=== PATIENT | male | born 1960 | race Two or more races ===

== ENCOUNTER → 2020-12-17 | Outpatient (CLI) | payer OTHER | END | disposition home or self-care (01) | LOC: LAB 13:12 | PROVIDERS: ATTEND Nurse Practitioner Family | DX: Z20.822 Contact with and (suspected) exposure to COVID-19 (principal) | CPT/HCPCS: C9803; U0003 ==

== ENCOUNTER 2025-01-07 15:38 | Inpatient (IN) | payer OTHER ==
[~2025-01-07] VITALS: Ht 177.8 cm; Wt 140.7 kg
[2025-01-07] MEDS: SODIUM CHLORIDE 0.9% 1,000 ML IV ONE ×2 (16:15→20:17)
--- NOTE | 2025-01-07 16:16 | ED.PDOC ---
General HPI Comments This is a 64-year-old male with past medical history of hypertension, o bstructive sleep apnea (on CPAP), came to the hospital due to dysuria. He also reports of frequency, dribbling, hesitancy, urgency, and urinary incontinence. Per patient, he had right inguinal hernia repair 2 weeks back, after surgery he was feeling good but recently has developed right side abdominal pain. He denies fever, nausea, vomiting, chest pain, shortness of breaths or any bowel habit changes. Home meds: Losartan and Zepbound Surgical history: Cholecystectomy, gastric bypass surgery, and right inguinal hernia Chief Complaint: Urinary Time Seen by MD: 15:59 Allergies: Coded Allergies: NO KNOWN ALLERGIES (Unverified , 01/07/25) Information Source: Patient Mode of Arrival: Ambulatory Physical Exam General Appearance: No Apparent Distress, Normal HEENT: Normal ENT Inspection, Pharynx Normal, TMs Normal Neck: Full Range of Motion, Non-Tender, Normal, Normal Inspection Respiratory: Chest Non-Tender, Lungs Clear, No Accessory Muscle Use, No Respiratory Distress, Normal Breath Sounds Cardiovascular: No Edema, No JVD, No Murmur, No Gallop, Normal Peripheral Pulses, Regular Rate/Rhythm Breast Exam: Deferred Gastrointestinal: No Organomegaly, Non Tender, No Pulsatile Mass, Normal Bowel Sounds, Soft Genitalia: Deferred Pelvic: Deferred Rectal: Deferred Extremities: No calf tenderness, Normal capillary refill, Normal inspection, Normal range of motion, Non-tender, No pedal edema Musculoskeletal : Apperance: Normal Neurologic: Alert, farm consultant II-XII nml as Tested, No Motor Deficits, Normal Affect, Normal Mood, No Sensory Deficits Cerebellar Function: Normal Reflexes: Normal Skin: Dry, Normal Color, Warm Lymphatic: No Adenopathy Was a procedure done? Was a procedure done?: No Differential Diagnosis Kidney stone (Female): Pyelonephritis Urinary Problem (Male): Bladder Outlet, Bladder Obstruction, Epididymitis, Prostatitis, Plelonephritis Urinary Problem (Female): Appendicitis X-Ray, Labs, Meds, VS Vital Signs Date Time Temp Pulse Resp B/P (MAP) Pulse Ox O2 Delivery O2 Flow Rate FiO2 01/07/25 16:58 98 01/07/25 16:51 97.9 98 17 165/54 (91) 96 97.9 01/07/25 15:43 98.9 100 18 153/75 98 98.9 Lab Test 01/07/25 16:44 01/07/25 16:33 Range/Units Urine Color Brown H Yellow Urine Clarity Ex.turbid Clear Urine pH 6.0 5.0-9.0 Urine Specific [place] 1.027 1.001-1.035 Urine Protein 2+ H Negative Urine Ketones 2+ H Negative Urine Blood 3+ H Negative /uL Urine Nitrite Negative Negative Urine Bilirubin Negative Negative Urine Urobilinogen Normal Negative mg/dL Urine Leukocyte Esterase 3+ Negative /uL Urine RBC 3876 0 - 3 /hpf Urine WBC Clumps Present None Seen /hpf Urine Microscopic WBC 1486 H 0-3 /HPF Urine Squamous Epithelial Cells Few <5 /hpf Urine Bacteria None seen None Seen /hpf Urine Hyaline Casts Mod 0 - 2 /lpf Urine Mucus Few None Seen Urine Yeast (Budding) Moderate None Seen /hpf Urine Glucose Normal Normal mg/dL White Blood Count 14.9 H 4.4-10.8 10^3/uL Red Blood Count 4.55 4.5-5.90 10^6/uL Hemoglobin 14.3 13.5-17.5 g/dL Hematocrit 42.0 41.0-53.0 % Mean Corpuscular Volume 92.3 80.0-100.0 fL Mean Corpuscular Hemoglobin 31.5 28.0-32.0 pg Mean Corpuscular Hemoglobin Concent 34.1 32.0-36.0 g/dL Red Cell Distribution Width 13.8 11.8-14.3 % Platelet Count 242 140-450 10^3/uL Mean Platelet Volume 9.2 6.9-10.8 fL Neutrophils (%) (Auto) 84.3 H 37.0-80.0 % Lymphocytes (%) (Auto) 10.1 10.0-50.0 % Monocytes (%) (Auto) 5.3 0.0-12.0 % Eosinophils (%) (Auto) 0.1 0.0-7.0 % Basophils (%) (Auto) 0.2 0.0-2.0 % Neutrophils # (Auto) 12.5 H 1.6-8.6 10 ^3/uL Lymphocytes # (Auto) 1.5 0.4-5.4 10 ^3/uL Monocytes # (Auto) 0.8 0-1.3 10 ^3/uL Eosinophils # (Auto) 0 0-0.8 10 ^3/uL Basophils # (Auto) 0 0-0.2 10 ^3/uL Nucleated Red Blood Cells 0.0 % Sodium Level 137 136-145 mmol/L Potassium Level 3.7 3.5-5.1 mmol/L Chloride Level 103 98-107 mmol/L Carbon Dioxide Level 24 20-31 mmol/L Anion Gap 10 5-15 Blood Urea Nitrogen 9 9-23 mg/dL Creatinine 0.78 0.700-1.30 mg/dL Glomerular Filtration Rate Calc 101 >90 mL/min BUN/Creatinine Ratio 11.5 10.0-20.0 Serum Glucose 117 H 74-106 mg/dL Calcium Level 8.8 8.7-10.4 mg/dL Magnesium Level 1.8 1.6-2.6 mg/dL Total Bilirubin 0.9 0.2-1.0 mg/dL Aspartate Amino Transferase (AST) 18 13-40 U/L Alanine Aminotransferase (ALT) 17 7-40 U/L Alkaline Phosphatase 128 H 46-116 U/L Total Protein 7.7 5.7-8.2 g/dL Albumin 4.4 3.2-4.8 g/dL Current Medications Medications (Trade) Dose Ordered Sig/Brock Route Start Time Stop Time Status Last Admin Acetaminophen (Tylenol Tablet) 650 mg ONCE ONCE PO 01/07/25 16:15 01/07/25 16:41 DC 01/07/25 17:05 Time of 1ST Reevaluation: 19:34 Reevaluation 1ST: Unchanged Patient Education/Counseling: Diagnosis, Treatment, Prognosis, Need For Follow Up Family Education/Counseling: No Family Present Comments Patient came to the hospital due to dysuria frequency and hesitancy. Patient was vitally stable. CBC and CMP checked, showed raised WBC Urinalysis performed, showed UTI picture. CT scan, showed 0.8 cm septated complex fluid collection in the right lower quadrant of the abdomen. IV Rocephin given. Blood culture, urine culture ordered Patient will be admitted in hospital for further workup and management. SEPSIS Sepsis Screen Date sepsis recognized/suspect: Jan 07, 2025 Time Sepsis recognized/suspect: 1543 Recent Procedure: No On Antibiotic Therapy: No Respiratory Rate >20: No Heart Rate >90: Yes Temp<36 C (96.8 F) or >38.3 C: No SBP <90 or MAP <65 mmHG: No New Acute Mental Status Change: No Is the patient on CPAP, BIPAP,: No Physician Orders Bladder (01/07/25 16:01) Vital Signs Date Time Temp Pulse Resp B/P (MAP) Pulse Ox O2 Delivery O2 Flow Rate FiO2 01/07/25 16:58 98 01/07/25 16:51 97.9 98 17 165/54 (91) 96 97.9 01/07/25 15:43 98.9 100 18 153/75 98 98.9 Laboratory Tests Test 01/07/25 16:33 White Blood Count 14.9 10^3/uL (4.4-10.8) H Medications Medications Dose Ordered Sig/Brock Route Start Time Stop Time Status Last Admin Dose Admin Acetaminophen 650 mg ONCE ONCE PO 01/07/25 16:15 01/07/25 16:41 DC 01/07/25 17:05 Departure 1 Departure Time of Disposition: 19:36 Impression: Primary Impression: Pyelonephritis Additional Impression: Sepsis Disposition: ADMITTED INPATIENT Admit to: Med Surg Condition: Guarded Critical Care Note Critical Care Time?: No Stability Stability form required: No Heart Score Heart Score: Heart Score Response (Comments) Value History N/A 0 EKG N/A 0 Age N/A 0 Risk Factors N/A 0 Troponin N/A 0 Total 0 CHANTE HART Jan 07, 2025 16:16
[2025-01-07 16:58] VITALS: PULSE 98
[2025-01-07 17:00] LABS: Hematocrit 42.0 % (41.0-53.0); Hemoglobin 14.3 g/dL (13.5-17.5); Mean Corpuscular Hemoglobin 31.5 pg (28.0-32.0); Mean Corpuscular Volume 92.3 fL (80.0-100.0); Nucleated Red Blood Cells % 0.0 %
[2025-01-07 17:03] LABS: Urine Budding Yeast MODERATE /hpf (None Seen); Urine Protein, UAD 2+ (Negative); Urine WBC Clumps PRESENT /hpf (None Seen)
[2025-01-07] MEDS: ACETAMINOPHEN 325 MG TAB PO ONE (17:05)
[2025-01-07 17:21] LABS: Alanine Aminotransferase 17 U/L (7-40); Albumin 4.4 g/dL (3.2-4.8); Anion Gap 10 (5-15); BUN/Creatinine Ratio 11.5 (10.0-20.0); Bilirubin, Total 0.9 mg/dL (0.2-1.0); Blood Urea Nitrogen 9 mg/dL (9-23); Calcium 8.8 mg/dL (8.7-10.4); Carbon Dioxide 24 mmol/L (20-31); Chloride 103 mmol/L (98-107); Magnesium 1.8 mg/dL (1.6-2.6); Potassium 3.7 mmol/L (3.5-5.1); Sodium 137 mmol/L (136-145); Total Protein 7.7 g/dL (5.7-8.2)
[2025-01-07 17:23] LABS: Alkaline Phosphatase 128 U/L (46-116); Glucose 117 mg/dL (74-106)
--- NOTE | 2025-01-07 17:56 | DVH ---
Exam: US BLADDER History: status post hernai repair, urinany symptoms Comparison: None Date: 01/07/2025 04:56 PM Technique: Grayscale and color Doppler ultrasound of the pelvis was obtained. Pre-and postvoid images of the bladder were obtained. Findings: Prevoid bladder is not well distended and is suboptimally evaluated. The volume of the time of the e xamination is estimated at 29 cc. The bladder wall measures 17 mm in thickness although this is likel y due to nondistention. Postvoid, the bladder volume is approximately 18 cc. The left ureteral jet is visualized. The right ureteral jet is not visualized during this study. There is a septated complex fluid collection in the right lower quadrant measuring approximately 10.8 x 4.0 x 8.9 cm. IMPRESSION: The bladder is not distended at the time of evaluation and evaluation is therefore suboptimal. The left ureteral jet is seen. The right ureteral jet is not seen during this study. There is a 10.8 cm septated complex fluid collection in the right lower quadrant of the abdomen. Lyn elates clinically with physical exam. Consider CT with contrast if clinically indicated.
[2025-01-07] MEDS ORDERED: ONDANSETRON HCL 4 MG/2 ML VIAL IV PRN (20:30)
[2025-01-07] MEDS ORDERED: ACETAMINOPHEN 325 MG TAB PO PRN (20:30)
[2025-01-07] MEDS ORDERED: HYDROcodone-ACET 5/325MG TAB PO PRN (20:30)
[2025-01-07] MEDS ORDERED: TEMAZEPAM 15 MG CAP PO PRN (20:30)
--- NOTE | 2025-01-07 22:31 | DVHHP2 ---
History of Present Illness Reason for Visit: Urinary symptoms History of Present Illness 64-year-old male presents for evaluation of urinary symptoms. Patient reports a two day history of dysuria with urgency and hesitancy. Denies fever or chills. He also reports mild right abdominal tenderness. No nausea or vomiting. No o ther acute complaints reported. Past Medical History Hypertension Past Surgical History Gastric bypass, right inguinal hernia, cholecystectomy Family History Noncontributory Smoke: No ALCOHOL: none Drugs: None Lives: with Family Review of Systems Review of Systems Review of systems are currently negative otherwise addressed in HPI. Allergies: Coded Allergies: NO KNOWN ALLERGIES (Unverified , 01/07/25) Medications Current Medications Medications Dose Ordered Sig/Brock Route Start Time Stop Time Status Last Admin Dose Admin Ceftriaxone Sodium 50 ml @ 100 mls/hr Q24H IV 01/08/25 20:00 Acetaminophen/ Hydrocodone Bitart 1 tab Q4HP PRN PO 01/07/25 20:30 Temazepam 15 mg QHSP PRN PO 01/07/25 20:30 Ondansetron HCl 4 mg Q4HP PRN IV 01/07/25 20:30 Acetaminophen 650 mg Q6HP PRN PO 01/07/25 20:30 Exam Vital Signs Vital Signs Date Time Temp Pulse Resp B/P (MAP) Pulse Ox O2 Delivery O2 Flow Rate FiO2 01/07/25 16:58 98 01/07/25 16:51 97.9 17 165/54 (91) 96 97.9 Exam Gen: 64-year-old male in mild distress Skin: Warm, dry, normal color and texture, no rash. HEENT: Normocephalic atraumatic, mucous membranes moist and pink. Neck: Cervical and supraclavicular nodes normal without enlargement, trachea is midline, thyroid gland is normal without masses. Pulmonary: Clear to auscultation and percussion bilaterally. Cardiac: Regular rate and rhythm. No murmur Abdomen: Soft, nontender, nondistended, bowel sounds present all 4 quadrants, no guarding, no rigidity, no organomegaly. Extremities: No cyanosis, clubbing, no edema Neuro: Cranial nerves II through XII grossly intact, normal affect and speech, no focal motor deficits. Labs/Xrays ORDERING PHYSICIAN: CHANTE HART RESDICHRIS PROCEDURE(s): BLDR - BLADDER REASON: status post hernai repair, urinany symptoms ORDER NUMBER(s): [id number], ACCESSION NUMBER(s): [id number] Exam: US BLADDER History: status post hernai repair, urinany symptoms Comparison: None Date: 01/07/2025 04:56 PM Technique: Grayscale and color Doppler ultrasound of the pelvis was obtained. Pre-and postvoid images of the bladder were obtained. Findings: Prevoid bladder is not well distended and is suboptimally evaluated. The volume of the time of the examination is estimated at 29 cc. The bladder wall measures 17 mm in thickness although this is likely due to nondistention. Postvoid, the bladder volume is approximately 18 cc. The left ureteral jet is visualized. The right ureteral jet is not visualized during this study. There is a septated complex fluid collection in the right lower quadrant measuring approximately 10.8 x 4.0 x 8.9 cm. IMPRESSION: The bladder is not distended at the time of evaluation and evaluation is therefore suboptimal. The left ureteral jet is seen. The right ureteral jet is not seen during this study. There is a 10.8 cm septated complex fluid collection in the right lower quadrant of the abdomen. Correlates clinically with physical exam. Consider CT with contrast if clinically indicated. Labs Test 01/07/25 19:46 01/07/25 16:44 01/07/25 16:33 Range/Units Lactic Acid Level 1.3 0.4-2.0 mmol/L Urine Color Brown H Yellow Urine Clarity Ex.turbid Clear Urine pH 6.0 5.0-9.0 Urine Specific [place] 1.027 1.001-1.035 Urine Protein 2+ H Negative Urine Ketones 2+ H Negative Urine Blood 3+ H Negative /uL Urine Nitrite Negative Negative Urine Bilirubin Negative Negative Urine Urobilinogen Normal Negative mg/dL Urine Leukocyte Esterase 3+ Negative /uL Urine RBC 3876 0 - 3 /hpf Urine WBC Clumps Present None Seen /hpf Urine Microscopic WBC 1486 H 0-3 /HPF Urine Squamous Epithelial Cells Few <5 /hpf Urine Bacteria None seen None Seen /hpf Urine Hyaline Casts Mod 0 - 2 /lpf Urine Mucus Few None Seen Urine Yeast (Budding) Moderate None Seen /hpf Urine Glucose Normal Normal mg/dL White Blood Count 14.9 H 4.4-10.8 10^3/uL Red Blood Count 4.55 4.5-5.90 10^6/uL Hemoglobin 14.3 13.5-17.5 g/dL Hematocrit 42.0 41.0-53.0 % Mean Corpuscular Volume 92.3 80.0-100.0 fL Mean Corpuscular Hemoglobin 31.5 28.0-32.0 pg Mean Corpuscular Hemoglobin Concent 34.1 32.0-36.0 g/dL Red Cell Distribution Width 13.8 11.8-14.3 % Platelet Count 242 140-450 10^3/uL Mean Platelet Volume 9.2 6.9-10.8 fL Neutrophils (%) (Auto) 84.3 H 37.0-80.0 % Lymphocytes (%) (Auto) 10.1 10.0-50.0 % Monocytes (%) (Auto) 5.3 0.0-12.0 % Eosinophils (%) (Auto) 0.1 0.0-7.0 % Basophils (%) (Auto) 0.2 0.0-2.0 % Neutrophils # (Auto) 12.5 H 1.6-8.6 10 ^3/uL Lymphocytes # (Auto) 1.5 0.4-5.4 10 ^3/uL Monocytes # (Auto) 0.8 0-1.3 10 ^3/uL Eosinophils # (Auto) 0 0-0.8 10 ^3/uL Basophils # (Auto) 0 0-0.2 10 ^3/uL Nucleated Red Blood Cells 0.0 % Sodium Level 137 136-145 mmol/L Potassium Level 3.7 3.5-5.1 mmol/L Chloride Level 103 98-107 mmol/L Carbon Dioxide Level 24 20-31 mmol/L Anion Gap 10 5-15 Blood Urea Nitrogen 9 9-23 mg/dL Creatinine 0.78 0.700-1.30 mg/dL Glomerular Filtration Rate Calc 101 >90 mL/min BUN/Creatinine Ratio 11.5 10.0-20.0 Serum Glucose 117 H 74-106 mg/dL Calcium Level 8.8 8.7-10.4 mg/dL Magnesium Level 1.8 1.6-2.6 mg/dL Total Bilirubin 0.9 0.2-1.0 mg/dL Aspartate Amino Transferase (AST) 18 13-40 U/L Alanine Aminotransferase (ALT) 17 7-40 U/L Alkaline Phosphatase 128 H 46-116 U/L Total Protein 7.7 5.7-8.2 g/dL Albumin 4.4 3.2-4.8 g/dL SEPSIS Sepsis Screen Date sepsis recognized/suspect: Jan 07, 2025 Time Sepsis recognized/suspect: 1543 Recent Procedure: No On Antibiotic Therapy: No Respiratory Rate >20: No Heart Rate >90: Yes Temp<36 C (96.8 F) or >38.3 C: No SBP <90 or MAP <65 mmHG: No New Acute Mental Status Change: No Is the patient on CPAP, BIPAP,: No Physician Orders Bladder (01/07/25 16:01) Blood Culture (01/07/25 19:37) Admit (01/07/25 19:55) Urine Bacterial Culture (01/07/25 20:22) Ceftriaxone 1gm/50ml (Rocephin) (01/08/25 20:00) Hydrocodone-Acet 5/325mg Tab ([place] 5/32 (01/07/25 20:30) Temazepam (Restoril) (01/07/25 20:30) Ondansetron Hcl (Zofran) (01/07/25 20:30) Cardiac Diet-2gna,Lofat,Lochol (01/08/25 Breakfast) Condition: Stable (01/07/25 20:22) Acetaminophen Tablet (Tylenol Tablet) (01/07/25 20:30) Bedrest With Bathroom Privileg (01/07/25 20:22) Basic Metabolic Panel (01/08/25 04:00) Complete Blood Count (01/08/25 04:00) Vital Signs Date Time Temp Pulse Resp B/P (MAP) Pulse Ox O2 Delivery O2 Flow Rate FiO2 01/07/25 16:58 98 01/07/25 16:51 97.9 98 17 165/54 (91) 96 97.9 01/07/25 15:43 98.9 100 18 153/75 98 98.9 Laboratory Tests Test 01/07/25 16:33 01/07/25 19:46 White Blood Count 14.9 10^3/uL (4.4-10.8) H Lactic Acid Level 1.3 mmol/L (0.4-2.0) Medications Medications Dose Ordered Sig/Brock Route Start Time Stop Time Status Last Admin Dose Admin Acetaminophen 650 mg ONCE ONCE PO 01/07/25 16:15 01/07/25 16:41 DC 01/07/25 17:05 650 MG Ceftriaxone Sodium 50 ml @ 100 mls/hr ONCE ONCE IV 01/07/25 19:45 01/07/25 20:14 DC 01/07/25 20:18 100 MLS/HR Sodium Chloride 1,000 ml @ 1,000 mls/hr Q1H ONCE IV 01/07/25 19:45 01/07/25 20:44 DC 01/07/25 20:17 1,000 MLS/HR Assessment/Plan Assessment/Plan Assessment Acute pyelonephritis Leukocytosis Hypertension Plan Admit the patient to [facility] to the hospitalist Liudmila Urine bacterial culture pending Pain management Resume home medications Continue treatment per orders. Plan discussed with: Patient My Orders Orders - TANNER BRANDON Procedure Category Date Status Time Admit ADMIT 01/07/25 Transmitted 19:55 Urine Bacterial AMARA 01/07/25 In Process Culture 20:22 Ceftriaxone 1gm/50ml PHA 01/08/25 In Process (Rocephin) 20:00 Hydrocodone-Acet PHA 01/07/25 In Process 5/325mg Tab ([place] 20:30 Temazepam (Restoril) PHA 01/07/25 In Process 20:30 Ondansetron Hcl PHA 01/07/25 In Process (Zofran) 20:30 Cardiac DIET 01/08/25 Transmitted Diet-2gna,Lofat,Lochol Breakfast Condition: Stable MALIHA 01/07/25 In Process 20:22 Acetaminophen Tablet PHA 01/07/25 In Process (Tylenol Tablet) 20:30 Bedrest With Bathroom MALIHA 01/07/25 In Process Privileg 20:22 Basic Metabolic Panel LAB 01/08/25 Verified 04:00 Complete Blood Count LAB 01/08/25 Verified 04:00 Date of Service: Jan 07, 2025 Billing Provider: TANNER BRANDON Common Visit Codes: [id number] INP/OBS CARE (MOD) TANNER BRANDON Jan 07, 2025 22:31
[2025-01-07 23:05] VITALS: BP 122/58; PULSE 92; RESP 18; TEMP 98.2; O2SAT 97
[2025-01-07] MEDS ORDERED: LOSA-534 PO (23:37)
[2025-01-07] MEDS ORDERED: OXY5T PO (23:37)
[2025-01-07] MEDS ORDERED: TIRZ5INJ2 SC (23:37)
[2025-01-08] VITALS (8 sets, daily range): BP systolic 103–126; BP diastolic 51–71; PULSE 44–74; RESP 17–19; TEMP 97.5–98.6; O2SAT 96–99
[2025-01-08 06:32] LABS: Hematocrit 36.1 % (41.0-53.0); Hemoglobin 12.7 g/dL (13.5-17.5); Mean Corpuscular Hemoglobin 32.3 pg (28.0-32.0); Mean Corpuscular Volume 92.0 fL (80.0-100.0); Nucleated Red Blood Cells % 0.0 %
[2025-01-08 06:40] LABS: Anion Gap 7 (5-15); Carbon Dioxide 27 mmol/L (20-31); Chloride 105 mmol/L (98-107); Potassium 3.6 mmol/L (3.5-5.1); Sodium 139 mmol/L (136-145)
[2025-01-08 06:46] LABS: BUN/Creatinine Ratio 11.9 (10.0-20.0); Blood Urea Nitrogen 8 mg/dL (9-23); Calcium 8.4 mg/dL (8.7-10.4); Glucose 104 mg/dL (74-106)
--- NOTE | 2025-01-08 11:16 | DVHPN2 ---
Subjective The patient seen and examined at bedside. Complains of abdominal pain still. Reviewed: Care Plan, H&P, Labs, Medications, Previous Orders, Radiology Changes from previous H/P or p: No Changes Objective Vitals Vital Signs Date Time Temp Pulse Resp B/P (MAP) Pulse Ox O2 Delivery O2 Flow Rate FiO2 01/08/25 09:00 98.1 69 18 126/66 (86) 97 98.1 01/08/25 08:00 Room Air* 0 21 Intake/Output Intake and Output 01/08/25 07:00 Output Total 850 ml Balance -850 ml Output Urine Total 850 ml General Appearance: Alert, Oriented X3, Cooperative, No acute distress HEENT: Atraumatic, PERRLA, EOMI, Mucous membr. moist/pink Neck: Supple Lungs: Clear to auscultation, Normal air movement Cardiovascular: Regular rate, Normal S1, Normal S2, No murmurs, Gallops, Rubs Abdomen: Normal bowel sounds, Soft, Other (Tenderness on left lower quadrant.) Back: Flank Tenderness Neuro: Cranial nerves 3-12 NL Psych/Mental Status: Mental status NL Medications Current Medications Medications Dose Ordered Sig/Brock Route Start Time Stop Time Status Last Admin Dose Admin Ceftriaxone Sodium 50 ml @ 100 mls/hr Q24H IV 01/08/25 20:00 Acetaminophen/ Hydrocodone Bitart 1 tab Q4HP PRN PO 01/07/25 20:30 Temazepam 15 mg QHSP PRN PO 01/07/25 20:30 Ondansetron HCl 4 mg Q4HP PRN IV 01/07/25 20:30 Acetaminophen 650 mg Q6HP PRN PO 01/07/25 20:30 Laboratory Results Laboratory Tests 01/08/25 05:21 Chemistry Test 01/07/25 16:33 01/08/25 05:21 Albumin 4.4 g/dL (3.2-4.8) Calcium Level 8.8 mg/dL (8.7-10.4) 8.4 mg/dL (8.7-10.4) L Magnesium Level 1.8 mg/dL (1.6-2.6) Total Protein 7.7 g/dL (5.7-8.2) LFT Test 01/07/25 16:33 Alanine Aminotransferase (ALT) 17 U/L (7-40) Alkaline Phosphatase 128 U/L (46-116) H Aspartate Amino Transferase (AST) 18 U/L (13-40) Total Bilirubin 0.9 mg/dL (0.2-1.0) Urinalysis Test 01/07/25 16:44 Urine Color Brown (Yellow) H Urine Clarity Ex.turbid (Clear) Urine pH 6.0 (5.0-9.0) Urine Specific [place] 1.027 (1.001-1.035) Urine Protein 2+ (Negative) H Urine Ketones 2+ (Negative) H Urine Blood 3+ /uL (Negative) H Urine Nitrite Negative (Negative) Urine Bilirubin Negative (Negative) Urine Urobilinogen Normal mg/dL (Negative) Urine Leukocyte Esterase 3+ /uL (Negative) Urine RBC 3876 /hpf (0 - 3) Urine WBC Clumps Present /hpf (None Seen) Urine Microscopic WBC 1486 /HPF (0-3) H Urine Squamous Epithelial Cells Few /hpf (<5) Urine Bacteria None seen /hpf (None Seen) Urine Hyaline Casts Mod /lpf (0 - 2) Urine Mucus Few (None Seen) Urine Yeast (Budding) Moderate /hpf (None Seen) Urine Glucose Normal mg/dL (Normal) Microbiology Microbiology Date/Time Source Procedure Growth Status 01/07/25 16:44 Voided Urine Urine Culture - Preliminary Resulted Labs and/or images reviewed: Labs reviewed by me Assessment/Plan Assessment/Plan UTI Leukocytosis Hypertension 10.8 cm septated complex fluid collection in the right lower quadrant of the abdomen. ? concerning abscess in a patient with recent hernia repair last week. Continue current management. Continue with IV antibiotic Will follow up with culture Continue HTN meds. Will order CT abdomen and pelvis with and without oral/IV contrast . Plan discussed with: Patient, Spouse Date of Service: Jan 08, 2025 Billing Provider: OLINDA SQUIRES MD Common Visit Codes: [id number] INP/OBS CARE(HIGH) OLINDA SQUIRES MD Jan 08, 2025 11:16
[2025-01-09] VITALS (8 sets, daily range): BP systolic 102–125; BP diastolic 46–77; PULSE 59–70; RESP 16–19; TEMP 97–98.3; O2SAT 93–100
[2025-01-09 07:24] LABS: Anion Gap 9 (5-15); Carbon Dioxide 27 mmol/L (20-31); Chloride 104 mmol/L (98-107); Potassium 3.6 mmol/L (3.5-5.1); Sodium 140 mmol/L (136-145)
[2025-01-09 07:26] LABS: Hematocrit 34.8 % (41.0-53.0); Hemoglobin 12.4 g/dL (13.5-17.5); Mean Corpuscular Hemoglobin 32.4 pg (28.0-32.0); Mean Corpuscular Volume 91.2 fL (80.0-100.0); Nucleated Red Blood Cells % 0.0 %
[2025-01-09 07:30] LABS: BUN/Creatinine Ratio 10.6 (10.0-20.0)
[2025-01-09 07:33] LABS: Blood Urea Nitrogen 7 mg/dL (9-23); Calcium 8.5 mg/dL (8.7-10.4); Glucose 108 mg/dL (74-106)
--- NOTE | 2025-01-09 11:09 | DVHPN2 ---
Subjective The patient seen and examined at bedside. Complains of abdominal pain still. Reviewed: Care Plan, H&P, Labs, Medications, Previous Orders, Radiology Changes from previous H/P or p: No Changes Objective Vitals Vital Signs Date Time Temp Pulse Resp B/P (MAP) Pulse Ox O2 Delivery O2 Flow Rate FiO2 01/09/25 10:36 97.5 70 16 125/76 (92) 93 97.5 01/08/25 20:00 Room Air* 0 21 Intake/Output Intake and Output 01/09/25 07:00 Intake Total 1352 ml Output Total 1875 ml Balance -523 ml Intake Oral 1302 ml IV Total 50 ml Output Urine Total 1875 ml # Voids 3 General Appearance: Alert, Oriented X3, Cooperative, No acute distress HEENT: Atraumatic, PERRLA, EOMI, Mucous membr. moist/pink Neck: Supple Lungs: Clear to auscultation, Normal air movement Cardiovascular: Regular rate, Normal S1, Normal S2, No murmurs, Gallops, Rubs Abdomen: Normal bowel sounds, Soft, Other (Tenderness on left lower quadrant.) Back: Flank Tenderness Neuro: Cranial nerves 3-12 NL Psych/Mental Status: Mental status NL Medications Current Medications Medications Dose Ordered Sig/Brock Route Start Time Stop Time Status Last Admin Dose Admin Ceftriaxone Sodium 50 ml @ 100 mls/hr Q24H IV 01/08/25 20:00 01/08/25 21:19 100 MLS/HR Acetaminophen/ Hydrocodone Bitart 1 tab Q4HP PRN PO 01/07/25 20:30 Temazepam 15 mg QHSP PRN PO 01/07/25 20:30 Ondansetron HCl 4 mg Q4HP PRN IV 01/07/25 20:30 Acetaminophen 650 mg Q6HP PRN PO 01/07/25 20:30 Laboratory Results Laboratory Tests 01/09/25 06:38 Chemistry Test 01/09/25 06:38 Calcium Level 8.5 mg/dL (8.7-10.4) L Urinalysis Test 01/07/25 16:44 Urine Color Brown (Yellow) H Urine Clarity Ex.turbid (Clear) Urine pH 6.0 (5.0-9.0) Urine Specific [place] 1.027 (1.001-1.035) Urine Protein 2+ (Negative) H Urine Ketones 2+ (Negative) H Urine Blood 3+ /uL (Negative) H Urine Nitrite Negative (Negative) Urine Bilirubin Negative (Negative) Urine Urobilinogen Normal mg/dL (Negative) Urine Leukocyte Esterase 3+ /uL (Negative) Urine RBC 3876 /hpf (0 - 3) Urine WBC Clumps Present /hpf (None Seen) Urine Microscopic WBC 1486 /HPF (0-3) H Urine Squamous Epithelial Cells Few /hpf (<5) Urine Bacteria None seen /hpf (None Seen) Urine Hyaline Casts Mod /lpf (0 - 2) Urine Mucus Few (None Seen) Urine Yeast (Budding) Moderate /hpf (None Seen) Urine Glucose Normal mg/dL (Normal) Microbiology Microbiology Date/Time Source Procedure Growth Status 01/08/25 00:18 Nose MRSA Screen - Final Complete 01/07/25 19:46 Blood Blood Culture - Preliminary NO GROWTH AFTER 24 HOURS OF INCUBATION. Resulted 01/07/25 16:44 Voided Urine Urine Culture - Preliminary Resulted Labs and/or images reviewed: Labs reviewed by me, Image(s) reviewed by me Assessment/Plan Assessment/Plan UTI Leukocytosis Hypertension 10.8 cm septated complex fluid collection in the right lower quadrant of the abdomen. ? concerning abscess in a patient with recent hernia repair last week. Per CT scan abdomen and pelvis, it showed: Right lower anterior abdominal/pelvic rim enhancing fluid collection with surrounding stranding as described above measuring 9.5 x 8 x 4.4 cm, concerning for abscess. Other considerations include postoperative collections, hematoma / seroma. . Continue current management. Will consult IR for aspirate the abscess. Continue with IV antibiotic Will follow up with culture Continue HTN meds. Will order CT abdomen and pelvis with and without oral/IV contrast . Plan discussed with: Patient My Orders Orders - OLINDA SQUIRES MD Procedure Category Date Status Time Complete Blood Count LAB 01/10/25 Verified 05:00 Complete Blood Count LAB 01/11/25 Verified 05:00 Complete Blood Count LAB 01/12/25 Verified 05:00 Complete Blood Count LAB 01/13/25 Verified 05:00 Basic Metabolic Panel LAB 01/10/25 Verified 05:00 Basic Metabolic Panel LAB 01/11/25 Verified 05:00 Basic Metabolic Panel LAB 01/12/25 Verified 05:00 Basic Metabolic Panel LAB 01/13/25 Verified 05:[address] Ct Abd Pelvis W CT 01/09/25 Taken Con-Oral & Iv 07:02 Date of Service: Jan 09, 2025 Billing Provider: OLINDA SQUIRES MD Common Visit Codes: [id number] INP/OBS CARE(HIGH) OLINDA SQUIRES MD Jan 09, 2025 11:09
--- NOTE | 2025-01-09 12:15 | DVH ---
Indication: R/O ABDOMINAL ABSCESS Technique: CT axial images of the abdomen and pelvis are obtained with intravenous contrast. Coronal and sagittal reformats were obtained. Radiation Dose Information: CTDI volume is 26.5 mGy. Dose-length product is 1616.38 mGy*cm Comparison: None FINDINGS: Lung bases demonstrate atelectasis. Adrenal glands, spleen, pancreas unremarkable. Cholecystectomy. Hepatic steatosis. No hydronephrosis. Postsurgical changes stomach /gastric bypass. Small bowel loops normal in caliber. Colonic diverticula. Moderate volume stool in the colon. No secondary signs for appendicitis. Duplicated IVC. Abdominal aorta normal in caliber. Bladder wall thickening with surrounding strandin g. Trace free pelvic fluid. Mild presacral edema. No inguinal lymphadenopathy. There is a rim enhancing collection in the lower right anterior abdominal / pelvic subcutaneous tissu es anterior to the right rectus abdominus measuring 8 x 4.4 by 9.5 cm. There is surrounding soft tis daija stranding. There is stranding extending into the pelvic tissues surrounding the bladder, right in guinal canal. Moderate to advanced thoracolumbar degenerative disc disease most pronounced at L5-S1. Severe degener ate changes right hip. Moderate degenerate changes left hip. Thoracolumbar levocurvature. IMPRESSION: Right lower anterior abdominal/pelvic rim enhancing fluid collection with surrounding stranding as de scribed above measuring 9.5 x 8 x 4.4 cm, concerning for abscess. Other considerations include postop erative collections, hematoma / seroma. Bladder wall thickening and surrounding stranding may represent cystitis. Colonic diverticular disease. Gastric bypass. Cholecystectomy. Other findings as described.
[2025-01-10] VITALS (7 sets, daily range): BP systolic 100–132; BP diastolic 58–82; PULSE 55–65; RESP 16–20; TEMP 96.9–98.1; O2SAT 94–98
[2025-01-10 06:20] LABS: Hematocrit 35.6 % (41.0-53.0); Hemoglobin 12.6 g/dL (13.5-17.5); Mean Corpuscular Hemoglobin 32.2 pg (28.0-32.0); Mean Corpuscular Volume 91.1 fL (80.0-100.0); Nucleated Red Blood Cells % 0.0 %
[2025-01-10 06:29] LABS: Anion Gap 9 (5-15); Carbon Dioxide 28 mmol/L (20-31); Chloride 104 mmol/L (98-107); Potassium 3.7 mmol/L (3.5-5.1); Sodium 141 mmol/L (136-145)
[2025-01-10 06:32] LABS: Calcium 8.5 mg/dL (8.7-10.4)
[2025-01-10 06:35] LABS: BUN/Creatinine Ratio 10.3 (10.0-20.0); Glucose 105 mg/dL (74-106)
[2025-01-10 06:43] LABS: Blood Urea Nitrogen 7 mg/dL (9-23)
--- NOTE | 2025-01-10 11:30 | DVHPN2 ---
Subjective The patient seen and examined at bedside. Complains of abdominal pain still. Reviewed: Care Plan, H&P, Labs, Medications, Previous Orders, Radiology Changes from previous H/P or p: No Changes Objective Vitals Vital Signs Date Time Temp Pulse Resp B/P (MAP) Pulse Ox O2 Delivery O2 Flow Rate FiO2 01/10/25 09:00 97.2 55 16 127/68 (87) 97 97.2 01/10/25 08:00 Room Air* 0 21 Intake/Output Intake and Output 01/10/25 07:00 Intake Total 1070 ml Output Total 800 ml Balance 270 ml Intake Oral 1020 ml IV Total 50 ml Output Urine Total 800 ml # Voids 2 General Appearance: Alert, Oriented X3, Cooperative, No acute distress HEENT: Atraumatic, PERRLA, EOMI, Mucous membr. moist/pink Neck: Supple Lungs: Clear to auscultation, Normal air movement Cardiovascular: Regular rate, Normal S1, Normal S2, No murmurs, Gallops, Rubs Abdomen: Normal bowel sounds, Soft, Other (Tenderness on left lower quadrant.) Back: Flank Tenderness Neuro: Cranial nerves 3-12 NL Psych/Mental Status: Mental status NL Medications Current Medications Medications Dose Ordered Sig/Brock Route Start Time Stop Time Status Last Admin Dose Admin Ceftriaxone Sodium 50 ml @ 100 mls/hr Q24H IV 01/08/25 20:00 01/09/25 20:21 100 MLS/HR Acetaminophen/ Hydrocodone Bitart 1 tab Q4HP PRN PO 01/07/25 20:30 Temazepam 15 mg QHSP PRN PO 01/07/25 20:30 Ondansetron HCl 4 mg Q4HP PRN IV 01/07/25 20:30 Acetaminophen 650 mg Q6HP PRN PO 01/07/25 20:30 Laboratory Results Laboratory Tests 01/10/25 05:38 Chemistry Test 01/10/25 05:38 Calcium Level 8.5 mg/dL (8.7-10.4) L Urinalysis Test 01/07/25 16:44 Urine Color Brown (Yellow) H Urine Clarity Ex.turbid (Clear) Urine pH 6.0 (5.0-9.0) Urine Specific [place] 1.027 (1.001-1.035) Urine Protein 2+ (Negative) H Urine Ketones 2+ (Negative) H Urine Blood 3+ /uL (Negative) H Urine Nitrite Negative (Negative) Urine Bilirubin Negative (Negative) Urine Urobilinogen Normal mg/dL (Negative) Urine Leukocyte Esterase 3+ /uL (Negative) Urine RBC 3876 /hpf (0 - 3) Urine WBC Clumps Present /hpf (None Seen) Urine Microscopic WBC 1486 /HPF (0-3) H Urine Squamous Epithelial Cells Few /hpf (<5) Urine Bacteria None seen /hpf (None Seen) Urine Hyaline Casts Mod /lpf (0 - 2) Urine Mucus Few (None Seen) Urine Yeast (Budding) Moderate /hpf (None Seen) Urine Glucose Normal mg/dL (Normal) Microbiology Microbiology Date/Time Source Procedure Growth Status 01/08/25 00:18 Nose MRSA Screen - Final Complete 01/07/25 19:46 Blood Blood Culture - Preliminary NO GROWTH AFTER 48 HOURS OF INCUBATION. Resulted 01/07/25 16:44 Voided Urine Urine Culture - Final Complete Labs and/or images reviewed: Labs reviewed by me Assessment/Plan Assessment/Plan UTI Leukocytosis Hypertension 10.8 cm septated complex fluid collection in the right lower quadrant of the abdomen. ? concerning abscess in a patient with recent hernia repair last week. Per CT scan abdomen and pelvis, it showed: Right lower anterior abdominal/pelvic rim enhancing fluid collection with surrounding stranding as described above measuring 9.5 x 8 x 4.4 cm, concerning for abscess. Other considerations include postoperative collections, hematoma / seroma. . Continue current management. Waiting for IR for aspirate the abscess. Continue with IV antibiotic Will follow up with culture Continue HTN meds. Discussed with peer to peer with [facility] physician. Approve patient stated until today. Plan discussed with: Patient My Orders Orders - OLINDA SQUIRES MD Procedure Category Date Status Time * Radiologist Consult CONS 01/09/25 Transmitted 22:57 Date of Service: Jan 10, 2025 Billing Provider: OLINDA SQUIRES MD Common Visit Codes: [id number] INP/OBS CARE(HIGH) OLINDA SQUIRES MD Jan 10, 2025 11:30
[2025-01-10 14:57] LABS: INR 1.25 (0.9-1.15); Partial Thromboplastin Time 29.7 SEC (24.5-34.5); Prothrombin Time 13.0 sec (9.3-11.8)
--- NOTE | 2025-01-10 23:06 | PEER ---
Peer to Peer Review Time DATE: 01/10/25 TIME: 12:40 I had a peer to peer with [facility] physician today regarding to patient's admission and treatment. I explained to the doctor that the patient just had inguinal hernia done two weeks ago in [facility]. Per patient's the patient did not have a Mesh. The surgeon took a patch of his skin and "plug the hole?" of his hernia. Currently the CT scan abdomen pelvis so showed right lower quadrant abscess collection. I consulted interventional radiologist for aspiration. Per [facility] physician she approve his stay from the day of admission which is 01/07/2025 to 01/10/2025. OLINDA SQUIRES MD Jan 10, 2025 23:06
[2025-01-11 01:00] VITALS: BP 110/56; PULSE 65; RESP 17; TEMP 97.4; O2SAT 94
[2025-01-11 05:00] VITALS: BP 110/58; PULSE 58; RESP 18; TEMP 97.2; O2SAT 95
[2025-01-11 05:39] LABS: Hematocrit 35.9 % (41.0-53.0); Hemoglobin 12.5 g/dL (13.5-17.5); Mean Corpuscular Hemoglobin 31.9 pg (28.0-32.0); Mean Corpuscular Volume 91.6 fL (80.0-100.0); Nucleated Red Blood Cells % 0.1 %
[2025-01-11 05:48] LABS: Anion Gap 8 (5-15); Carbon Dioxide 29 mmol/L (20-31); Chloride 104 mmol/L (98-107); Potassium 3.7 mmol/L (3.5-5.1); Sodium 141 mmol/L (136-145)
[2025-01-11 05:54] LABS: BUN/Creatinine Ratio 9.5 (10.0-20.0); Blood Urea Nitrogen 7 mg/dL (9-23); Calcium 8.7 mg/dL (8.7-10.4); Glucose 101 mg/dL (74-106)
[2025-01-11 08:41] VITALS: BP 145/85; PULSE 60; RESP 18; TEMP 98; O2SAT 100
[2025-01-11 13:00] VITALS: BP 132/83; PULSE 56; RESP 19; TEMP 97.9; O2SAT 96
--- NOTE | 2025-01-11 15:14 | DVHPN2 ---
Subjective The patient seen and examined at bedside. Complains of abdominal pain still. Reviewed: Care Plan, H&P, Labs, Medications, Previous Orders, Radiology Changes from previous H/P or p: No Changes Objective Vitals Vital Signs Date Time Temp Pulse Resp B/P (MAP) Pulse Ox O2 Delivery O2 Flow Rate FiO2 01/11/25 13:00 97.9 56 19 132/83 (99) 96 97.9 01/11/25 08:00 Room Air* 0 21 Intake/Output Intake and Output 01/11/25 07:00 Intake Total 1690 ml Output Total 1350 ml Balance 340 ml Intake Oral 1640 ml IV Total 50 ml Output Urine Total 1350 ml # Bowel Movements 8 General Appearance: Alert, Oriented X3, Cooperative, No acute distress HEENT: Atraumatic, PERRLA, EOMI, Mucous membr. moist/pink Neck: Supple Lungs: Clear to auscultation, Normal air movement Cardiovascular: Regular rate, Normal S1, Normal S2, No murmurs, Gallops, Rubs Abdomen: Normal bowel sounds, Soft, Other (Tenderness on left lower quadrant.) Back: Flank Tenderness Neuro: Cranial nerves 3-12 NL Psych/Mental Status: Mental status NL Medications Current Medications Medications Dose Ordered Sig/Brock Route Start Time Stop Time Status Last Admin Dose Admin Ceftriaxone Sodium 50 ml @ 100 mls/hr Q24H IV 01/08/25 20:00 01/10/25 20:16 100 MLS/HR Acetaminophen/ Hydrocodone Bitart 1 tab Q4HP PRN PO 01/07/25 20:30 Temazepam 15 mg QHSP PRN PO 01/07/25 20:30 Ondansetron HCl 4 mg Q4HP PRN IV 01/07/25 20:30 Acetaminophen 650 mg Q6HP PRN PO 01/07/25 20:30 Laboratory Results Laboratory Tests 01/11/25 05:18 Chemistry Test 01/11/25 05:18 Calcium Level 8.7 mg/dL (8.7-10.4) Urinalysis Test 01/07/25 16:44 Urine Color Brown (Yellow) H Urine Clarity Ex.turbid (Clear) Urine pH 6.0 (5.0-9.0) Urine Specific [place] 1.027 (1.001-1.035) Urine Protein 2+ (Negative) H Urine Ketones 2+ (Negative) H Urine Blood 3+ /uL (Negative) H Urine Nitrite Negative (Negative) Urine Bilirubin Negative (Negative) Urine Urobilinogen Normal mg/dL (Negative) Urine Leukocyte Esterase 3+ /uL (Negative) Urine RBC 3876 /hpf (0 - 3) Urine WBC Clumps Present /hpf (None Seen) Urine Microscopic WBC 1486 /HPF (0-3) H Urine Squamous Epithelial Cells Few /hpf (<5) Urine Bacteria None seen /hpf (None Seen) Urine Hyaline Casts Mod /lpf (0 - 2) Urine Mucus Few (None Seen) Urine Yeast (Budding) Moderate /hpf (None Seen) Urine Glucose Normal mg/dL (Normal) Microbiology Microbiology Date/Time Source Procedure Growth Status 01/08/25 00:18 Nose MRSA Screen - Final Complete 01/07/25 19:46 Blood Blood Culture - Preliminary NO GROWTH AFTER 72 HOURS OF INCUBATION. Resulted 01/07/25 16:44 Voided Urine Urine Culture - Final Complete Labs and/or images reviewed: Labs reviewed by me Assessment/Plan Assessment/Plan UTI Leukocytosis Hypertension 10.8 cm septated complex fluid collection in the right lower quadrant of the abdomen. ? concerning abscess in a patient with recent hernia repair last week. Per CT scan abdomen and pelvis, it showed: Right lower anterior abdominal/pelvic rim enhancing fluid collection with surrounding stranding as described above measuring 9.5 x 8 x 4.4 cm, concerning for abscess. Other considerations include postoperative collections, hematoma / seroma. . Continue current management. still waiting for IR for aspirate the abscess. Continue with IV antibiotic Will follow up with culture Continue HTN meds. This medical document was created using an electronic medical record system with [employer] direct computerized dictation system. Although this document has been carefully reviewed, there may still be some phonetic and typographical errors. These areas are purely typographical due to imperfections of the software programs, and do not reflect any compromise in the patient's medical care. Plan discussed with: Patient, Spouse Date of Service: Jan 11, 2025 Billing Provider: OLINDA SQUIRES MD Common Visit Codes: [id number] INP/OBS CARE(HIGH) OLINDA SQUIRES MD Jan 11, 2025 15:14
[2025-01-11 16:34] VITALS: BP 114/70; PULSE 58; RESP 19; TEMP 98.3; O2SAT 98
[2025-01-11] MEDS: LOSARTAN POTASSIUM 50 MG TAB PO ONE (17:44)
[2025-01-11 21:00] VITALS: BP 108/62; PULSE 60; RESP 17; TEMP 98.1; O2SAT 96
[2025-01-12 01:00] VITALS: BP 104/62; PULSE 58; RESP 17; TEMP 97.5; O2SAT 98
[2025-01-12 05:00] VITALS: BP 108/54; PULSE 55; RESP 17; TEMP 97.9; O2SAT 95
[2025-01-12 07:27] LABS: Hematocrit 35.2 % (41.0-53.0); Hemoglobin 12.2 g/dL (13.5-17.5); Mean Corpuscular Hemoglobin 31.6 pg (28.0-32.0); Mean Corpuscular Volume 90.8 fL (80.0-100.0); Nucleated Red Blood Cells % 0.1 %
[2025-01-12 07:45] LABS: Anion Gap 9 (5-15); Carbon Dioxide 29 mmol/L (20-31); Chloride 104 mmol/L (98-107); Potassium 3.8 mmol/L (3.5-5.1); Sodium 142 mmol/L (136-145)
[2025-01-12 07:49] LABS: Calcium 8.5 mg/dL (8.7-10.4)
[2025-01-12 07:51] LABS: BUN/Creatinine Ratio 9.1 (10.0-20.0); Glucose 95 mg/dL (74-106)
[2025-01-12 08:00] LABS: Blood Urea Nitrogen 7 mg/dL (9-23)
[2025-01-12 09:00] VITALS: BP 132/77; PULSE 58; RESP 16; TEMP 98.6; O2SAT 97
[2025-01-12] MEDS: LOSARTAN POTASSIUM 50 MG TAB PO SCH (09:26)
[2025-01-12 13:00] VITALS: BP 118/69; PULSE 61; RESP 14; TEMP 97.5; O2SAT 97
[2025-01-12 17:15] VITALS: BP 127/71; PULSE 67; RESP 16; TEMP 99; O2SAT 97
[2025-01-12 21:00] VITALS: BP 97/56; PULSE 71; RESP 18; TEMP 97.4; O2SAT 96
--- NOTE | 2025-01-12 23:07 | DVHPN2 ---
Subjective The patient seen and examined at bedside. Complains of abdominal pain still. Reviewed: Care Plan, H&P, Labs, Medications, Previous Orders, Radiology Changes from previous H/P or p: No Changes Objective Vitals Vital Signs Date Time Temp Pulse Resp B/P (MAP) Pulse Ox O2 Delivery O2 Flow Rate FiO2 01/12/25 21:00 97.4 71 18 97/56 (70) 96 97.4 01/12/25 08:05 Room Air* 0 21 Intake/Output Intake and Output 01/12/25 07:00 Intake Total 1980 ml Output Total 1000 ml Balance 980 ml Intake Oral 1980 ml Output Urine Total 1000 ml # Voids 15 # Bowel Movements 7 General Appearance: Alert, Oriented X3, Cooperative, No acute distress HEENT: Atraumatic, PERRLA, EOMI, Mucous membr. moist/pink Neck: Supple Lungs: Clear to auscultation, Normal air movement Cardiovascular: Regular rate, Normal S1, Normal S2, No murmurs, Gallops, Rubs Abdomen: Normal bowel sounds, Soft, Other (Tenderness on left lower quadrant.) Back: Flank Tenderness Neuro: Cranial nerves 3-12 NL Psych/Mental Status: Mental status NL Medications Current Medications Medications Dose Ordered Sig/Brock Route Start Time Stop Time Status Last Admin Dose Admin Ceftriaxone Sodium 50 ml @ 100 mls/hr Q24H IV 01/08/25 20:00 01/12/25 20:24 100 MLS/HR Acetaminophen/ Hydrocodone Bitart 1 tab Q4HP PRN PO 01/07/25 20:30 Temazepam 15 mg QHSP PRN PO 01/07/25 20:30 Ondansetron HCl 4 mg Q4HP PRN IV 01/07/25 20:30 Acetaminophen 650 mg Q6HP PRN PO 01/07/25 20:30 Losartan Potassium 50 mg DAILY PO 01/12/25 10:00 01/12/25 09:26 50 MG Laboratory Results Laboratory Tests 01/12/25 06:14 Chemistry Test 01/12/25 06:14 Calcium Level 8.5 mg/dL (8.7-10.4) L Urinalysis Test 01/07/25 16:44 Urine Color Brown (Yellow) H Urine Clarity Ex.turbid (Clear) Urine pH 6.0 (5.0-9.0) Urine Specific [place] 1.027 (1.001-1.035) Urine Protein 2+ (Negative) H Urine Ketones 2+ (Negative) H Urine Blood 3+ /uL (Negative) H Urine Nitrite Negative (Negative) Urine Bilirubin Negative (Negative) Urine Urobilinogen Normal mg/dL (Negative) Urine Leukocyte Esterase 3+ /uL (Negative) Urine RBC 3876 /hpf (0 - 3) Urine WBC Clumps Present /hpf (None Seen) Urine Microscopic WBC 1486 /HPF (0-3) H Urine Squamous Epithelial Cells Few /hpf (<5) Urine Bacteria None seen /hpf (None Seen) Urine Hyaline Casts Mod /lpf (0 - 2) Urine Mucus Few (None Seen) Urine Yeast (Budding) Moderate /hpf (None Seen) Urine Glucose Normal mg/dL (Normal) Microbiology Microbiology Date/Time Source Procedure Growth Status 01/08/25 00:18 Nose MRSA Screen - Final Complete 01/07/25 19:46 Blood Blood Culture - Final NO GROWTH AFTER 5 DAYS OF INCUBATION. Complete 01/07/25 16:44 Voided Urine Urine Culture - Final Complete Labs and/or images reviewed: Labs reviewed by me Assessment/Plan Assessment/Plan UTI Leukocytosis Hypertension 10.8 cm septated complex fluid collection in the right lower quadrant of the abdomen. ? concerning abscess in a patient with recent hernia repair last week. Per CT scan abdomen and pelvis, it showed: Right lower anterior abdominal/pelvic rim enhancing fluid collection with surrounding stranding as described above measuring 9.5 x 8 x 4.4 cm, concerning for abscess. Other considerations include postoperative collections, hematoma / seroma. . Continue current management. still waiting for IR for aspirate the abscess. Hopefully can be done tomorrow. Per IR department. Dr Dinh will drain the abscess tomorrow Continue with IV antibiotic Will follow up with culture Continue HTN meds. This medical document was created using an electronic medical record system with [employer] direct computerized dictation system. Although this document has been carefully reviewed, there may still be some phonetic and typographical errors. These areas are purely typographical due to imperfections of the software programs, and do not reflect any compromise in the patient's medical care. Plan discussed with: Patient Date of Service: Jan 12, 2025 Billing Provider: OLINDA SQUIRES MD Common Visit Codes: [id number] INP/OBS CARE(HIGH) OLINDA SQUIRES MD Jan 12, 2025 23:07
[2025-01-13 05:00] VITALS: BP 91/48; PULSE 52; RESP 17; TEMP 98; O2SAT 93
[2025-01-13 08:13] LABS: Chloride 103 mmol/L (98-107); Potassium 3.9 mmol/L (3.5-5.1); Sodium 142 mmol/L (136-145)
[2025-01-13 08:14] LABS: Anion Gap 11 (5-15); Carbon Dioxide 28 mmol/L (20-31)
[2025-01-13 08:16] LABS: Hematocrit 37.3 % (41.0-53.0); Hemoglobin 13.0 g/dL (13.5-17.5); Mean Corpuscular Hemoglobin 31.6 pg (28.0-32.0); Mean Corpuscular Volume 90.5 fL (80.0-100.0); Nucleated Red Blood Cells % 0.0 %
[2025-01-13 08:19] LABS: BUN/Creatinine Ratio 8.8 (10.0-20.0); Glucose 88 mg/dL (74-106)
[2025-01-13 08:27] LABS: Blood Urea Nitrogen 7 mg/dL (9-23); Calcium 8.7 mg/dL (8.7-10.4)
[2025-01-13] MEDS: fentaNYL CITRATE 100 MCG/2 ML VL IV ONE (08:45)
[2025-01-13 09:00] VITALS: BP 117/77; PULSE 55; RESP 16; TEMP 97.7; O2SAT 96
--- NOTE | 2025-01-13 10:04 | DVH ---
US ULTRA GUIDED ABCESS DRAINAGE, HISTORY: ABCESS DRAINAGE PROCEDURE: An informed consent was obtained. The patient was placed supine on the interventional tabl e. IV pain medication was administered. The suspicious fluid collection was localized with ultrasound and the overlying skin prepped with chlorhexidine which was allowed to dry and draped in the usual s terile fashion. Time out was performed and infiltrated with 1% Xylocaine. With US guidance, an 8 Fr p igtail multipurpose drainage catheter was placed into the fluid collection using trocar technique. Sm all amount was aspirated for appropriate microbiology/cytology/microbiology and cytology analysis. A pproximately 50 cc of serosanguinous fluid was aspirated. The drain was sutured at the skin surface a nd connected to suction drainage. No immediate complication was identified. Post procedure catherogra m was obtained. Medications: Dr. Bayron Dinh was personally responsible for the administration of moderate sedation duri ng the procedure performed, including the use of an independent trained observer who had no other dut ies during the procedure. The drugs utilized were IV fentanyl (see nursing log for details). The tot al time of supervision by the attending physician was approximately 30 minutes. FINDINGS: Limited US scan of through the abdomen demonstrates a fluid collection in the abdominal wal l. Collection appears complex. Post procedure scan shows pigtail drain within the collection , which is decreased in size. IMPRESSION: Successful US guided placement of 8 bulgarian pigtail drain into a RLQ abdominal wall fluid collection. PLAN: Routine tube care. Anticipiate drain removal in 3-5 days.
--- NOTE | 2025-01-13 11:10 | DVHPN2 ---
Subjective The patient seen and examined at bedside. Status post aspiration of the abscess. Reviewed: Care Plan, H&P, Labs, Medications, Previous Orders, Radiology Changes from previous H/P or p: No Changes Objective Vitals Vital Signs Date Time Temp Pulse Resp B/P (MAP) Pulse Ox O2 Delivery O2 Flow Rate FiO2 01/13/25 10:04 117/77 01/13/25 09:00 97.7 55 16 96 97.7 01/13/25 08:08 Room Air* 0 21 Intake/Output Intake and Output 01/13/25 07:00 Intake Total 500 ml Balance 500 ml Intake Oral 450 ml IV Total 50 ml # Voids 13 # Bowel Movements 1 General Appearance: Alert, Oriented X3, Cooperative, No acute distress HEENT: Atraumatic, PERRLA, EOMI, Mucous membr. moist/pink Neck: Supple Lungs: Clear to auscultation, Normal air movement Cardiovascular: Regular rate, Normal S1, Normal S2, No murmurs, Gallops, Rubs Abdomen: Normal bowel sounds, Soft, Other (Tenderness on left lower quadrant.) Back: Flank Tenderness Neuro: Cranial nerves 3-12 NL Psych/Mental Status: Mental status NL Medications Current Medications Medications Dose Ordered Sig/Brock Route Start Time Stop Time Status Last Admin Dose Admin Ceftriaxone Sodium 50 ml @ 100 mls/hr Q24H IV 01/08/25 20:00 01/12/25 20:24 100 MLS/HR Acetaminophen/ Hydrocodone Bitart 1 tab Q4HP PRN PO 01/07/25 20:30 Temazepam 15 mg QHSP PRN PO 01/07/25 20:30 Ondansetron HCl 4 mg Q4HP PRN IV 01/07/25 20:30 Acetaminophen 650 mg Q6HP PRN PO 01/07/25 20:30 Losartan Potassium 50 mg DAILY PO 01/12/25 10:00 01/13/25 10:04 50 MG Laboratory Results Laboratory Tests 01/13/25 06:26 Chemistry Test 01/13/25 06:26 Calcium Level 8.7 mg/dL (8.7-10.4) Urinalysis Test 01/07/25 16:44 Urine Color Brown (Yellow) H Urine Clarity Ex.turbid (Clear) Urine pH 6.0 (5.0-9.0) Urine Specific [place] 1.027 (1.001-1.035) Urine Protein 2+ (Negative) H Urine Ketones 2+ (Negative) H Urine Blood 3+ /uL (Negative) H Urine Nitrite Negative (Negative) Urine Bilirubin Negative (Negative) Urine Urobilinogen Normal mg/dL (Negative) Urine Leukocyte Esterase 3+ /uL (Negative) Urine RBC 3876 /hpf (0 - 3) Urine WBC Clumps Present /hpf (None Seen) Urine Microscopic WBC 1486 /HPF (0-3) H Urine Squamous Epithelial Cells Few /hpf (<5) Urine Bacteria None seen /hpf (None Seen) Urine Hyaline Casts Mod /lpf (0 - 2) Urine Mucus Few (None Seen) Urine Yeast (Budding) Moderate /hpf (None Seen) Urine Glucose Normal mg/dL (Normal) Microbiology Microbiology Date/Time Source Procedure Growth Status 01/08/25 00:18 Nose MRSA Screen - Final Complete 01/07/25 19:46 Blood Blood Culture - Final NO GROWTH AFTER 5 DAYS OF INCUBATION. Complete 01/07/25 16:44 Voided Urine Urine Culture - Final Complete Labs and/or images reviewed: Labs reviewed by me Assessment/Plan Assessment/Plan UTI Leukocytosis Hypertension 10.8 cm septated complex fluid collection in the right lower quadrant of the abdomen. ? concerning abscess in a patient with recent hernia repair last week. Per CT scan abdomen and pelvis, it showed: Right lower anterior abdominal/pelvic rim enhancing fluid collection with surrounding stranding as described above measuring 9.5 x 8 x 4.4 cm, concerning for abscess. Other considerations include postoperative collections, hematoma / seroma. . Continue current management. Status post aspirate the abscess per interventional radiologist. The patient now had a SHADE drain. We will follow up with culture Continue with IV antibiotic Will follow up with culture Continue HTN meds. This medical document was created using an electronic medical record system with [employer] direct computerized dictation system. Although this document has been carefully reviewed, there may still be some phonetic and typographical errors. These areas are purely typographical due to imperfections of the software programs, and do not reflect any compromise in the patient's medical care. Plan discussed with: Patient My Orders Orders - OLINDA SQUIRES MD Procedure Category Date Status Time Ultra Guided Abcess US 01/13/25 Resulted Drainage Date of Service: Jan 13, 2025 Billing Provider: OLINDA SQUIRES MD Common Visit Codes: [id number] INP/OBS CARE(HIGH) OLINDA SQUIRES MD Jan 13, 2025 11:10
[2025-01-13 13:00] VITALS: BP 114/57; PULSE 61; RESP 18; TEMP 97.6; O2SAT 98
[2025-01-13 16:24] VITALS: BP 118/74; PULSE 58; RESP 17; TEMP 98; O2SAT 98
[2025-01-13] MEDS: IOHEXOL 300 MG/ML 100ML BOTTLE IJ ONE (16:55)
[2025-01-13] MEDS: OMNIPAQUE 12mg/ml 500ml ORAL SOLUTION PO ONE (16:56)
[2025-01-13] MEDS: fentaNYL CITRATE 100 MCG/2 ML VL ONE (16:56)
[2025-01-13 20:53] VITALS: BP 109/64; PULSE 64; RESP 20; TEMP 98; O2SAT 96
[2025-01-14] VITALS (8 sets, daily range): BP systolic 105–128; BP diastolic 65–78; PULSE 53–66; RESP 16–20; TEMP 97.6–98; O2SAT 95–98
[2025-01-14 07:33] LABS: Anion Gap 10 (5-15); Carbon Dioxide 26 mmol/L (20-31); Chloride 103 mmol/L (98-107); Potassium 3.7 mmol/L (3.5-5.1); Sodium 139 mmol/L (136-145)
[2025-01-14 07:38] LABS: Hematocrit 38.4 % (41.0-53.0); Hemoglobin 13.2 g/dL (13.5-17.5); Mean Corpuscular Hemoglobin 31.8 pg (28.0-32.0); Mean Corpuscular Volume 92.6 fL (80.0-100.0); Nucleated Red Blood Cells % 0.1 %
[2025-01-14 07:39] LABS: BUN/Creatinine Ratio 8.5 (10.0-20.0); Glucose 92 mg/dL (74-106)
[2025-01-14 07:40] LABS: Blood Urea Nitrogen 6 mg/dL (9-23); Calcium 8.7 mg/dL (8.7-10.4)
--- NOTE | 2025-01-14 10:31 | DVHPN2 ---
Subjective The patient seen and examined at bedside. Status post aspiration of the abscess. Reviewed: Care Plan, H&P, Labs, Medications, Previous Orders, Radiology Changes from previous H/P or p: No Changes Objective Vitals Vital Signs Date Time Temp Pulse Resp B/P (MAP) Pulse Ox O2 Delivery O2 Flow Rate FiO2 01/14/25 09:44 104/67 01/14/25 08:30 97.7 57 16 98 97.7 01/14/25 08:00 Room Air* 0 21 Intake/Output Intake and Output 01/14/25 07:00 Intake Total 2030 ml Output Total 30 ml Balance 2000 ml Intake Oral 1980 ml IV Total 50 ml Drainage Total 30 ml # Voids 10 # Bowel Movements 2 General Appearance: Alert, Oriented X3, Cooperative, No acute distress HEENT: Atraumatic, PERRLA, EOMI, Mucous membr. moist/pink Neck: Supple Lungs: Clear to auscultation, Normal air movement Cardiovascular: Regular rate, Normal S1, Normal S2, No murmurs, Gallops, Rubs Abdomen: Normal bowel sounds, Soft, Other (Tenderness on left lower quadrant.) Back: Flank Tenderness Neuro: Cranial nerves 3-12 NL Psych/Mental Status: Mental status NL Medications Current Medications Medications Dose Ordered Sig/Brock Route Start Time Stop Time Status Last Admin Dose Admin Ceftriaxone Sodium 50 ml @ 100 mls/hr Q24H IV 01/08/25 20:00 01/13/25 20:12 100 MLS/HR Acetaminophen/ Hydrocodone Bitart 1 tab Q4HP PRN PO 01/07/25 20:30 Temazepam 15 mg QHSP PRN PO 01/07/25 20:30 Ondansetron HCl 4 mg Q4HP PRN IV 01/07/25 20:30 Acetaminophen 650 mg Q6HP PRN PO 01/07/25 20:30 Losartan Potassium 50 mg DAILY PO 01/12/25 10:00 01/14/25 09:44 50 MG Laboratory Results Laboratory Tests 01/14/25 06:44 Chemistry Test 01/14/25 06:44 Calcium Level 8.7 mg/dL (8.7-10.4) Urinalysis Test 01/07/25 16:44 Urine Color Brown (Yellow) H Urine Clarity Ex.turbid (Clear) Urine pH 6.0 (5.0-9.0) Urine Specific [place] 1.027 (1.001-1.035) Urine Protein 2+ (Negative) H Urine Ketones 2+ (Negative) H Urine Blood 3+ /uL (Negative) H Urine Nitrite Negative (Negative) Urine Bilirubin Negative (Negative) Urine Urobilinogen Normal mg/dL (Negative) Urine Leukocyte Esterase 3+ /uL (Negative) Urine RBC 3876 /hpf (0 - 3) Urine WBC Clumps Present /hpf (None Seen) Urine Microscopic WBC 1486 /HPF (0-3) H Urine Squamous Epithelial Cells Few /hpf (<5) Urine Bacteria None seen /hpf (None Seen) Urine Hyaline Casts Mod /lpf (0 - 2) Urine Mucus Few (None Seen) Urine Yeast (Budding) Moderate /hpf (None Seen) Urine Glucose Normal mg/dL (Normal) Microbiology Microbiology Date/Time Source Procedure Growth Status 01/08/25 00:18 Nose MRSA Screen - Final Complete 01/07/25 19:46 Blood Blood Culture - Final NO GROWTH AFTER 5 DAYS OF INCUBATION. Complete 01/07/25 16:44 Voided Urine Urine Culture - Final Complete Labs and/or images reviewed: Labs reviewed by me Assessment/Plan Assessment/Plan UTI Leukocytosis Hypertension 10.8 cm septated complex fluid collection in the right lower quadrant of the abdomen. ? concerning abscess in a patient with recent hernia repair last week. Per CT scan abdomen and pelvis, it showed: Right lower anterior abdominal/pelvic rim enhancing fluid collection with surrounding stranding as described above measuring 9.5 x 8 x 4.4 cm, concerning for abscess. Other considerations include postoperative collections, hematoma / seroma. . Continue current management. Status post aspirate the abscess per interventional radiologist. The patient now had a SHADE drain. We will follow up with culture Continue with IV antibiotic Will follow up with culture, prelim show no growth. SHADE will be remove in 3-5 days per IR Continue HTN meds. Discharge planning in am. This medical document was created using an electronic medical record system with [employer] direct computerized dictation system. Although this document has been carefully reviewed, there may still be some phonetic and typographical errors. These areas are purely typographical due to imperfections of the software programs, and do not reflect any compromise in the patient's medical care. Plan discussed with: Patient My Orders Orders - OLINDA SQUIRES MD Procedure Category Date Status Time Complete Blood Count LAB 01/15/25 Verified 05:00 Complete Blood Count LAB 01/16/25 Verified 05:00 Basic Metabolic Panel LAB 01/15/25 Verified 05:00 Basic Metabolic Panel LAB 01/16/25 Verified 05:00 Date of Service: Jan 14, 2025 Billing Provider: OLINDA SQUIRES MD Common Visit Codes: [id number] INP/OBS CARE(HIGH) OLINDA SQUIRES MD Jan 14, 2025 10:31
[2025-01-15 01:00] VITALS: BP 107/51; PULSE 73; RESP 18; TEMP 98; O2SAT 97
[2025-01-15 05:00] VITALS: BP 102/47; PULSE 60; RESP 18; TEMP 98; O2SAT 98
[2025-01-15 08:00] VITALS: RESP 18; O2SAT 97
[2025-01-15 08:17] LABS: Calcium 8.8 mg/dL (8.7-10.4); Chloride 103 mmol/L (98-107); Potassium 4.2 mmol/L (3.5-5.1); Sodium 140 mmol/L (136-145)
[2025-01-15 08:18] LABS: Anion Gap 9 (5-15); Carbon Dioxide 28 mmol/L (20-31)
[2025-01-15 08:23] LABS: BUN/Creatinine Ratio 9.6 (10.0-20.0); Glucose 92 mg/dL (74-106)
[2025-01-15 08:25] LABS: Blood Urea Nitrogen 8 mg/dL (9-23)
[2025-01-15 08:55] LABS: Hematocrit 39.6 % (41.0-53.0); Hemoglobin 13.4 g/dL (13.5-17.5); Mean Corpuscular Hemoglobin 31.1 pg (28.0-32.0); Mean Corpuscular Volume 91.8 fL (80.0-100.0); Nucleated Red Blood Cells % 0.1 %
[2025-01-15 09:22] VITALS: BP 111/66; PULSE 59; RESP 16; TEMP 97.8; O2SAT 99
--- NOTE | 2025-01-15 10:44 | DVHDS2 ---
Discharge Summary Date of Admission Jan 07, 2025 at 19:55 Date of Discharge: Jan 15, 2025 Admitting Diagnosis UTI Leukocytosis Hypertension 10.8 cm septated complex fluid collection in the right lower quadrant of the abdomen. ? concerning abscess in a patient with recent hernia repair last week. Per CT scan abdomen and pelvis, it showed: Right lower anterior abdominal/pelvic rim enhancing fluid collection with surrounding stranding as described above measuring 9.5 x 8 x 4.4 cm, concerning for abscess. Other considerations include postoperative collections, hematoma / seroma. . Labs/Diagnostic Data: Laboratory Results Test 01/15/25 07:12 01/10/25 14:35 01/07/25 19:46 01/07/25 16:44 White Blood Count 5.6 10^3/uL (4.4-10.8) Red Blood Count 4.31 10^6/uL (4.5-5.90) Hemoglobin 13.4 g/dL (13.5-17.5) Hematocrit 39.6 % (41.0-53.0) Mean Corpuscular Volume 91.8 fL (80.0-100.0) Mean Corpuscular Hemoglobin 31.1 pg (28.0-32.0) Mean Corpuscular Hemoglobin Concent 33.9 g/dL (32.0-36.0) Red Cell Distribution Width 13.3 % (11.8-14.3) Platelet Count 255 10^3/uL (140-450) Mean Platelet Volume 9.2 fL (6.9-10.8) Neutrophils (%) (Auto) 46.2 % (37.0-80.0) Lymphocytes (%) (Auto) 43.1 % (10.0-50.0) Monocytes (%) (Auto) 9.0 % (0.0-12.0) Eosinophils (%) (Auto) 1.5 % (0.0-7.0) Basophils (%) (Auto) 0.2 % (0.0-2.0) Neutrophils # (Auto) 2.6 10 ^3/uL (1.6-8.6) Lymphocytes # (Auto) 2.4 10 ^3/uL (0.4-5.4) Monocytes # (Auto) 0.5 10 ^3/uL (0-1.3) Eosinophils # (Auto) 0.1 10 ^3/uL (0-0.8) Basophils # (Auto) 0 10 ^3/uL (0-0.2) Nucleated Red Blood Cells 0.1 % Sodium Level 140 mmol/L (136-145) Potassium Level 4.2 mmol/L (3.5-5.1) Chloride Level 103 mmol/L (98-107) Carbon Dioxide Level 28 mmol/L (20-31) Anion Gap 9 (5-15) Blood Urea Nitrogen 8 mg/dL (9-23) Creatinine 0.83 mg/dL (0.700-1.30) Glomerular Filtration Rate Calc 99 mL/min (>90) BUN/Creatinine Ratio 9.6 (10.0-20.0) Serum Glucose 92 mg/dL (74-106) Calcium Level 8.8 mg/dL (8.7-10.4) Prothrombin Time 13.0 sec (9.3-11.8) Prothrombin Time INR 1.25 (0.9-1.15) Activated Partial Thromboplast Time 29.7 SEC (24.5-34.5) Lactic Acid Level 1.3 mmol/L (0.4-2.0) Urine Color Brown (Yellow) Urine Clarity Ex.turbid (Clear) Urine pH 6.0 (5.0-9.0) Urine Specific [place] 1.027 (1.001-1.035) Urine Protein 2+ (Negative) Urine Ketones 2+ (Negative) Urine Blood 3+ /uL (Negative) Urine Nitrite Negative (Negative) Urine Bilirubin Negative (Negative) Urine Urobilinogen Normal mg/dL (Negative) Urine Leukocyte Esterase 3+ /uL (Negative) Urine RBC 3876 /hpf (0 - 3) Urine WBC Clumps Present /hpf (None Seen) Urine Microscopic WBC 1486 /HPF (0-3) Urine Squamous Epithelial Cells Few /hpf (<5) Urine Bacteria None seen /hpf (None Seen) Urine Hyaline Casts Mod /lpf (0 - 2) Urine Mucus Few (None Seen) Urine Yeast (Budding) Moderate /hpf (None Seen) Urine Glucose Normal mg/dL (Normal) Test 01/07/25 16:33 Magnesium Level 1.8 mg/dL (1.6-2.6) Total Bilirubin 0.9 mg/dL (0.2-1.0) Aspartate Amino Transferase (AST) 18 U/L (13-40) Alanine Aminotransferase (ALT) 17 U/L (7-40) Alkaline Phosphatase 128 U/L (46-116) Total Protein 7.7 g/dL (5.7-8.2) Albumin 4.4 g/dL (3.2-4.8) Other Laboratory Tests 01/15/25 07:12 Brief Hx & Hospital Course: This is a 64 years old male come to emergency department because of dysuria and urgency with hesitancy. The patient said he started feeling this for two days prior to this admission. He did not have any fever or chills. He also had a right abdominal tenderness. He said he had a emergency surgery in [place], [place] when he had a right inguinal hernia incarceration. He had a repairman done there and was sent home in this area. The patient said his wound healing well. No redness no discharge. Patient has a ultrasound of bladder done. Which showed: The bladder is not distended at the time of evaluation and evaluation is therefore suboptimal. The left ureteral jet is seen. The right ureteral jet is not seen during this study. There is a 10.8 cm septated complex fluid collection in the right lower quadrant of the abdomen. Correlates clinically with physical exam. Consider CT with contrast if clinically indicated. Subsequently, CT abdomen and pelvis in this hospital showed Right lower anterior abdominal/pelvic rim enhancing fluid collection with surrounding stranding as described above measuring 9.5 x 8 x 4.4 cm, concerning for abscess. Other considerations include postoperative collections, hematoma / seroma.Bladder wall thickening and surrounding stranding may represent cystitis. Colonic diverticular disease.Gastric bypass.Cholecystectomy. The patient was put on IV antibiotic Rocephin 1 g IV q.day. urine culture showed contaminated. Blood culture showed no growth. Interventional radiologist was consulted for drainage. The patient had it done and had a SHADE drain inserted. The patient will have to come back to radiology department to remove the SHADE change when the fluid down to 5 mL per day. Today is still more than 5 mL. However the patient is stable and I will discharge the patient home. The culture from the fluid showed no growth. I still continuing oral antibiotic for 10 more days on Levaquin 500 mg p.o. daily. Physical exam HEENT: Normocephalic atraumatic pupils equal react to light and accommodation. Extraocular muscles intact, conjunctiva pink, oropharynx moist, no thrush, no exudate. Lymphatic: No lymphadenopathy Cardiovascular exam: S1, S2 was heard. No murmurs, rubs, gallops Lung: Clear on auscultation bilaterally, no wheeze, rale, rhonchi. GI: Abdominal soft, nondistended, nontenderness, positive bowel sounds. Extremity: No crepitus, cyanosis, edema. Pedal pulses present bilateral. Full range of motion. Skin: Normal turgor, no rash. Psych: Alert, oriented x3. Neurology: No focal deficits, cranial nerve II to XII grossly intact. This medical document was created using an electronic medical record system with [employer] direct computerized dictation system. Although this document has been carefully reviewed, there may still be some phonetic and typographical errors. These areas are purely typographical due to imperfections of the software programs, and do not reflect any compromise in the patient's medical care. . Condition at Discharge: Stable Final Diagnosis/Problems List Right lower anterior abdominal/pelvic abcess probably a sequela from Right ingunal hernia repair 2 week prior to this admission at [facility] status post drainage UTI and cystitis Leukocytosis Hypertension History of incarcerated right inguinal hernia status post repair two weeks prior to this admission at the outside hospital Discharge Disposition: Home Discharge Instruct/Medications Diet: Regular Activity: No Restrictions, As Tolerated Follow Up/Referral: PCP 1-2 weeks Surgeon per schedule Medications: See medication list Scheduled Levofloxacin Hemihydrate (Levaquin 500 Mg), 1 TAB PO DAILY Losartan Potassium (Losartan Potassium), 50 MG PO DAILY, (Reported) Tirzepatide (Zepbound), 5 MG SC QWEEKLY, (Reported) Scheduled PRN Oxycodone Hcl (Oxycodone Hcl), 5 MG PO DAILY PRN for PAIN SCALE 1 THRU 6, (Reported) Discharge Statement: "Patient was advised to return to the ER or call 911 if any headaches, dizziness, shortness of breath, chest pain, abdominal pain, bleeding, fevers, or worsening of medical condition. Patient was counseled about treatment plan, medications, possible side effects, patientverbalized understanding. All questions were answered to the best of my ability. This discharge took greater then 30 minutes in planning, reviewing documentation, counseling the patient, and discussing with other team members." ASSESSMENT ASSESSMENT Assessment Date of Service: Jan 15, 2025 Billing Provider: OLINDA SQUIRES MD Common Visit Codes: 28851-RCB/OBS DISCH DAY >30min OLINDA SQUIRES MD Jan 15, 2025 10:44
[2025-01-15] MEDS ORDERED: LEVO500T91 PO (10:45)
[2025-01-15 12:52] VITALS: BP 120/43; PULSE 55; RESP 18; TEMP 97.4; O2SAT 100
== END 2025-01-15 15:16 | disposition home or self-care (01) | DRG 602 ==
LOC: ER 15:38 → OVERFLOW 19:55 → WEST WING 23:05
PROVIDERS: ADMIT Internal Medicine; ATTEND Internal Medicine
PROC: 0W9F30Z Drainage of Abdominal Wall with Drainage Device, Percutaneous Approach (ICD-10-PCS; principal; 2025-01-13)
DX: L02.211 Cutaneous abscess of abdominal wall (principal); K65.1 Peritoneal abscess; N10 Acute pyelonephritis; I10 Essential (primary) hypertension; D72.829 Elevated white blood cell count, unspecified; N30.90 Cystitis, unspecified without hematuria; K57.30 Diverticulosis of large intestine without perforation or abscess without bleeding; Z90.49 Acquired absence of other specified parts of digestive tract; Z98.84 Bariatric surgery status; Z79.899 Other long term (current) drug therapy
CPT/HCPCS: 10060; 36415; 74177; 75989; 76857; 80048; 80053; 81001; 83605; 83735; 85025; 85610; 85730; 87040; 87071; 87081; 87086; 87205; C1729; G0378